=== PATIENT | male | born 1960 | race Caucasian/White ===

== ENCOUNTER 2016-12-17 12:00 | Inpatient (IN) | payer OTHER ==
[~2016-12-17] VITALS: Ht 189.2 cm; Wt 86.0 kg
--- NOTE | 2017-01-17 23:33 | CONS ---
DATE OF ADMISSION: 01/18/2017 DATE OF CONSULTATION: 01/18/2017 NEUROSURGICAL CONSULTATION HISTORY OF PRESENT ILLNESS: The patient was originally seen in the office for evaluation of neck pain, shoulder pain, arm pain, numbness in his left fourth and fifth digits and sometimes a gait instability. 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 Conservative management was offered to the patient in the form of epidural injections, physical therapy and pain management. Unfortunately, the patient's condition did not improve. The condition started getting worse. The patient wanted something more definitive to be done. The only option left is for surgical intervention. This was discussed with the patient in detail and the patient has agreed to undergo surgical intervention. PAST MEDICAL HISTORY: Per chart. PAST SURGICAL HISTORY: Per chart. SOCIAL HISTORY: Per chart. ALLERGIES: PER CHART. MEDICATION: Medications taken at home: Per chart. FAMILY HISTORY: None pertinent. REVIEW OF SYSTEMS: Additional 10-point review of systems conducted. Pertinent positives as in HPI. PHYSICAL EXAMINATION: GENERAL APPEARANCE: Awake, alert and oriented, follows commands. HEENT: Unremarkable. No cyanosis. Mouth: No lesions. NECK: Supple. LUNGS: Pulmonary: No dyspnea, no tachypnea. HEART: Cardiovascular: No JVD, no pedal edema. ABDOMEN: Soft, nontender. NEUROLOGIC: GCS 15. Cranial nerves 2-12 intact. Upper extremity examination: The patient has 4/5 strength in the left shoulder, left biceps, left triceps, left wrist extensors, flexors, intrinsic, extrinsic, hand muscles. He has diminished sensation to the left fourth and fifth digit. Right side is unremarkable. Lower extremity examination: He is able to move both sides equal at the hips, knees, and ankles. LABORATORY: MRI of the cervical spine dated 08/25/2016 shows C4- C5 subluxation with instability. IMPRESSION: C4-C5 instability. RECOMMENDATIONS: Recommendation is for patient to undergo surgical intervention in the form of anterior cervical decompression, cervical 4, cervical 5, partial vertebrectomy with discectomy with fusion and plating. The procedure was described to the patient in great detail, complications of the surgery were discussed in detail. The patient has agreed and wants to proceed, will be admitted to the hospital thereafter for further care and management. Dictated By: Waldo Cook MD /[email or web address]/hannah /Document#: [id number]
[2017-01-18] VITALS (25 sets, daily range): BP systolic 117–146; BP diastolic 67–92; PULSE 56–78; RESP 14–19; Ht 189.2 cm; Wt 86.0 kg
[2017-01-18] MEDS ORDERED: FURO40TA4 PO (08:37)
[2017-01-18] MEDS ORDERED: SPIR50TA PO (08:38)
[2017-01-18] MEDS ORDERED: HYDROCODONE/APAP (10/325) TAB PO PRN (09:00)
[2017-01-18] MEDS ORDERED: GELATIN SIZE 100 SPONGE ONE (09:25)
[2017-01-18] MEDS ORDERED: THROMBIN 5000 UNIT VIAL ONE (09:26)
[2017-01-18] MEDS ORDERED: LIDOCAINE 2%/EPI 30 ML INJ ONE (09:31)
--- NOTE | 2017-01-18 09:31 | HPN ---
Date/Time of Note Date/Time of Note DATE: 01/18/17 TIME: 09:31 Interval H&P Admission Note Pt. seen H&P reviewed: No system changes JOHN SALGUERO PA-C Jan 18, 2017 09:31
[2017-01-18 09:39] LABS: BASOPHIL # 0.1 10^3/ul (0.0-0.1); BASOPHILS % 0.8 % (0.0-2.0); EOSINOPHILS # 0.2 10^3/ul (0.0-0.5); EOSINOPHILS % 1.6 % (0.0-7.0); HEMATOCRIT 45.4 % (42.0-52.0); HEMOGLOBIN 15.4 g/dl (14.0-18.0); LYMPHOCYTES # 3.2 10^3/ul (0.8-2.9); LYMPHOCYTES % 23.5 % (15.0-51.0); MEAN CORPUSCULAR HEMOGLOBIN 30.8 pg (29.0-33.0); MEAN CORPUSCULAR HGB CONC 33.9 g/dl (32.0-37.0); MEAN CORPUSCULAR VOLUME 90.8 fl (82.0-101.0); MEAN PLATELET VOLUME 11.3 fl (7.4-10.4); MONOCYTE # 1.4 10^3/ul (0.3-0.9); MONOCYTES % 10.6 % (0.0-11.0); NEUTROPHILS % 63.1 % (39.0-77.0); PLATELET COUNT 211 10^3/UL (140-415); RED CELL DISTRIBUTION WIDTH 14.8 % (11.5-14.5)
[2017-01-18] MEDS ORDERED: FENTAnyl 50 MCG/ML VIAL ONE (09:42)
[2017-01-18 09:48] LABS: HOLD TRANSMISSIONS 1
[2017-01-18 09:50] LABS: WHITE BLOOD COUNT 13.4 10^3/ul (4.8-10.8)
[2017-01-18 09:56] LABS: ADD UMIC YES; UR ASCORBIC ACID NEGATIVE (NEGATIVE); UR BILIRUBIN (Dip) NEGATIVE (NEGATIVE); UR BLOOD (Dip) NEGATIVE (NEGATIVE); UR CLARITY CLEAR (CLEAR); UR COLOR YELLOW (YELLOW); UR GLUCOSE (Dip) NEGATIVE (NEGATIVE); UR KETONES (Dip) NEGATIVE (NEGATIVE); UR LEUKOCYTE ESTERASE (Dip) 1+ Leu/ul (NEGATIVE); UR NITRITE (Dip) NEGATIVE (NEGATIVE); UR RBC 1 /HPF (0-5); UR TOTAL PROTEIN (Dip) NEGATIVE (NEGATIVE); UR UROBILINOGEN (Dip) NEGATIVE (NEGATIVE)
[2017-01-18] MEDS ORDERED: MIDAZOLAM 1 MG/ML 2 ML INJ ONE (09:56)
[2017-01-18 09:58] LABS: INR 0.94; PROTIME 12.6 Sec (12.2-14.2)
[2017-01-18 09:59] LABS: PARTIAL THROMBOPLASTIN TIME 29.6 Sec (25.0-35.0)
[2017-01-18] MEDS ORDERED: niCARdipine 50 MG in SOD CHLORIDE 0.9% 480 ML IV PRN (10:00)
[2017-01-18 10:05] LABS: ALBUMIN 4.3 g/dl (3.3-4.9); ALBUMIN/GLOBULIN RATIO 1.38; BILIRUBIN,INDIRECT 0.4 mg/dl (0-1.1); BILIRUBIN,TOTAL 0.4 mg/dl (0.2-1.3); TOTAL PROTEIN 7.4 g/dl (6.1-8.1)
[2017-01-18] MEDS ORDERED: HEPARIN 1000 UNITS/NS (A-LINE) 0 ML ONE (10:06)
[2017-01-18 10:07] LABS: CALCIUM 9.8 mg/dl (8.4-10.2); CREATININE 0.82 mg/dl (0.61-1.24); POTASSIUM 3.6 mmol/L (3.5-5.1)
[2017-01-18] MEDS ORDERED: LABETALOL HCL 20MG INJ ONE (10:15)
[2017-01-18] MEDS ORDERED: PROPOFOL 40 ML ONE (10:32)
[2017-01-18] MEDS ORDERED: SUCCINYLCHOLINE CHLORIDE 100 MG/5 ML SYG IV ONE (10:32)
[2017-01-18] MEDS ORDERED: hydrALAzine 20 MG INJ ONE (10:32)
[2017-01-18] MEDS ORDERED: ROCURONIUM 50 MG INJ ONE (10:32)
[2017-01-18] MEDS ORDERED: CEFAZOLIN 1 GM INJ ONE (10:32)
[2017-01-18] MEDS ORDERED: LIDOCAINE 2% (SDV) 5 ML INJ ONE (10:32)
[2017-01-18] MEDS ORDERED: POLYMYXIN/BACITRACIN 1L IRRIG ONE (10:56)
[2017-01-18] MEDS ORDERED: SUGAMMADEX SODIUM 200 MG/2 ML VIAL IV ONE (11:22)
[2017-01-18] MEDS ORDERED: MEPERIDINE 25 MG INJ IV PRN (11:30)
[2017-01-18] MEDS ORDERED: HYDROmorphONE (0.2 MG/ML) 10ML SYG IV PRN ×2 (11:30)
[2017-01-18] MEDS ORDERED: DIPHENHYDRAMINE 50 MG INJ IV PRN (11:30)
[2017-01-18] MEDS ORDERED: ONDANSETRON 4 MG INJ IV PRN (11:30)
[2017-01-18] MEDS ORDERED: hydrALAzine 20 MG INJ IV PRN (11:30)
[2017-01-18] MEDS ORDERED: METOCLOPRAMIDE 10 MG INJ IV PRN (11:30)
[2017-01-18] MEDS ORDERED: LABETALOL HCL 20MG INJ IV PRN (11:30)
[2017-01-18] MEDS ORDERED: FENTAnyl 50 MCG/ML VIAL IV PRN ×2 (11:30)
--- NOTE | 2017-01-18 11:36 | OPR ---
Date/Time of Note Date/Time of Note DATE: 01/18/17 TIME: 11:32 Operative Report Free Text/Dictation c4-5 subluxation with instability Preoperative Diagnosis cervical 4 to cervical 5 subluxation with instability Postoperative Diagnosis same Operation Performed cervical 4 to cervical 5 partial vertebrectomy with diskectomy with interbody fusion and anterior plate Surgeon: JORDANA LEVIN MD Pharmacy Order Entry Technician: JOHN SALGUERO PA-C Anesthesia Type: general Anesthesiologist: SOLANGE KYLE Estimated Blood Loss: 10 - 50 ml's Transfusion Required: no Specimens c4-5 disk Complications: no Pt Condition Post Procedure: stable Operative\Procedure Findings c4-5 subluxation with instability JORDANA LEVIN MD Jan 18, 2017 11:36
[2017-01-18] MEDS: HYDROmorphONE (0.2 MG/ML) 10ML SYG IV PRN ×2 (11:54→12:14)
[2017-01-18] MEDS: DEXTROSE 5%-LR 1,000 ML IV SCH ×2 (12:43→21:22)
[2017-01-18] MEDS: DEXAMETHASONE 4 MG/ML 1 ML INJ IV SCH ×3 (13:25→23:11)
[2017-01-18] MEDS: CEFAZOLIN 1 GM/50 ML (PMX) 50 ML IVPB SCH ×2 (13:25→21:22)
--- NOTE | 2017-01-18 15:39 | RADRPT ---
PROCEDURE: Intraoperative imaging of the cervical spine with fluoroscopy. CLINICAL INDICATION: Neck pain. Intraoperative. TECHNIQUE: 5 images of the cervical spine were obtained in the operating room with an image intens ifier. No radiologist was in attendance. Fluoroscopy time is 10.0 seconds. COMPARISON: No prior study is available for comparison. FINDINGS: Surgical instruments are noted overlying the cervical spine. Images demonstrate anterior fusion wit h plate and screws at C4-5. Intervertebral disc spacer is present at C4-5. The endotracheal tube is in satisfactory position. IMPRESSION: 1. Intraoperative imaging of the cervical spine. RPTAT: QQ .Eb Rey MD, Date Time Electronically viewed and signed by .Eb Rey MD, on 01/18/2017 15:38 .R/
[2017-01-18] MEDS: morphine 2 MG INJ IV PRN (16:46)
[2017-01-18] MEDS: ONDANSETRON 4 MG INJ IV PRN (16:46)
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
[2017-01-19] VITALS (20 sets, daily range): BP systolic 97–149; BP diastolic 56–93; PULSE 54–72; RESP 12–22
[2017-01-19] MEDS: morphine 2 MG INJ IV PRN ×3 (00:52→19:52)
[2017-01-19] MEDS: ONDANSETRON 4 MG INJ IV PRN ×3 (00:57→20:01)
[2017-01-19] MEDS: DEXAMETHASONE 4 MG/ML 1 ML INJ IV SCH ×2 (05:28→12:37)
[2017-01-19] MEDS: CEFAZOLIN 1 GM/50 ML (PMX) 50 ML IVPB SCH ×2 (05:28→14:19)
[2017-01-19 05:43] LABS: BASOPHILS % 0.1 % (0.0-2.0); HEMATOCRIT 44.9 % (42.0-52.0); LYMPHOCYTES % 8.2 % (15.0-51.0); MEAN CORPUSCULAR HEMOGLOBIN 30.4 pg (29.0-33.0); MEAN CORPUSCULAR HGB CONC 33.4 g/dl (32.0-37.0); MEAN CORPUSCULAR VOLUME 90.9 fl (82.0-101.0); MEAN PLATELET VOLUME 11.5 fl (7.4-10.4); MONOCYTE # 0.8 10^3/ul (0.3-0.9); MONOCYTES % 6.2 % (0.0-11.0); NEUTROPHILS % 84.9 % (39.0-77.0); PLATELET COUNT 194 10^3/UL (140-415); RED BLOOD COUNT 4.94 10^6/ul (4.70-6.10); RED CELL DISTRIBUTION WIDTH 14.7 % (11.5-14.5); WHITE BLOOD COUNT 12.3 10^3/ul (4.8-10.8)
[2017-01-19 05:56] LABS: CALCIUM 9.3 mg/dl (8.4-10.2); CREATININE 0.71 mg/dl (0.61-1.24); POTASSIUM 4.1 mmol/L (3.5-5.1)
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
[2017-01-19] MEDS: DEXTROSE 5%-LR 1,000 ML IV SCH ×2 (11:40→14:17)
--- NOTE | 2017-01-19 13:48 | RADRPT ---
PROCEDURE: MRI cervical spine without contrast CLINICAL INDICATION: Status post cervical decompression, C4-5 subluxation surgery TECHNIQUE: Multiplanar MRI of the cervical spine without contrast was performed on a 3.0 T scanner including the following sequences: T1-weighted, T2-weighted, STIR, GRE. COMPARISON: Fluoroscopic study 01/18/2017 FINDINGS: There are postoperative changes with susceptibility artifacts associated with anterior cervical disc ectomy fusion hardware at C4-5, along with postoperative upper prevertebral / retropharyngeal edema. There is grade 1 anterolisthesis at C4-5. Visualized vertebral bodies are maintained in height an d visualized marrow signal intensity appears unremarkable. Anterior osteophytes are seen at C5-6 th ere is mild - moderate disc space narrowing at C5-6, and C6-7. The cervical cord is within normal li mits for signal intensity and caliber at all levels. The craniocervical junction is unremarkable. C2-3: There is a mild posterior disc osteophyte on the left. There is no central canal stenosis. Th ere are uncovertebral osteophytes and facet arthropathy on the left with moderate to severe left for aminal narrowing. C3-4: There is a minimal to mild broad posterior disc osteophyte without central canal stenosis. Th ere are uncovertebral osteophytes and facet arthropathy with mild - moderate foraminal narrowing. C4-5: Postoperative changes are present as described above. There is no central canal stenosis. The re are uncovertebral osteophytes and facet arthropathy with moderate - severe right, mild - moderate left foraminal narrowing. C5-6: There is a broad posterior disk/osteophyte with mild central canal stenosis. There are uncove rtebral osteophytes and facet arthropathy with moderate to severe left foraminal narrowing. C6-7: There is a broad posterior disk/osteophyte with mild central canal stenosis. There are uncove rtebral osteophytes and facet arthropathy with mild - moderate right, severe left foraminal narrowin g. C7-T1: No disc bulge or herniation is identified. There is no central canal stenosis. There is face t arthropathy with mild bilateral foraminal narrowing. IMPRESSION: 1. Postoperative changes, status post anterior cervical discectomy - fusion at C4-5 with grade 1 an terolisthesis at this level. 2. Cervical spondylosis/degenerative enthesopathy. 3. Mild central canal stenosis at C5-6 and C6-7. 4. Multilevel foraminal narrowing detailed above. RPTAT: VV .Edwin Duke MD, Date Time Electronically viewed and signed by .Edwin Duke MD, on 01/19/2017 13:47 .O/
--- NOTE | 2017-01-19 15:17 | CONS ---
Date/Time of Note Date/Time of Note DATE: 01/19/17 TIME: 15:15 Assessment/Plan Assessment/Plan Additional Assessment/Plan seen/examined sp c4-5 partial vertebrectomy with fusion moves all/sensation intact mri looks good pt may leave unit pt/ot Consultation Date/Type/Reason Admit Date/Time Jan 18, 2017 at 07:44 Initial Consult Date Exam/Review of Systems Vital Signs Vitals Vital Signs Date Time Temp Pulse Resp B/P Pulse Ox O2 Delivery O2 Flow Rate FiO2 01/19/17 15:00 57 22 132/89 96 Room Air 01/19/17 12:00 98.0 01/18/17 12:13 2.0 Intake and Output 01/18/17 01/18/17 01/19/17 15:00 23:00 07:00 Intake Total 1500 ml 750 ml 650 ml Output Total 290 ml 820 ml 665 ml Balance 1210 ml -70 ml -15 ml Results Result Diagram: 01/19/17 0442 01/19/17 0442 Results 24 hrs Laboratory Tests Test 01/19/17 04:42 White Blood Count 12.3 H Red Blood Count 4.94 Hemoglobin 15.0 Hematocrit 44.9 Mean Corpuscular Volume 90.9 Mean Corpuscular Hemoglobin 30.4 Mean Corpuscular Hemoglobin Concent 33.4 Red Cell Distribution Width 14.7 H Platelet Count 194 Mean Platelet Volume 11.5 H Neutrophils % 84.9 H Lymphocytes % 8.2 L Monocytes % 6.2 Eosinophils % 0.0 Basophils % 0.1 Nucleated Red Blood Cells % 0.0 Neutrophils # (Manual) 10.4 H Lymphocytes # 1.0 Monocytes # 0.8 Eosinophils # 0.0 Basophils # 0.0 Nucleated Red Blood Cells # 0.0 Sodium Level 139 Potassium Level 4.1 Chloride Level 106 Carbon Dioxide Level 26 Anion Gap 11 Blood Urea Nitrogen 11 Creatinine 0.71 Glucose Level 135 # Calcium Level 9.3 Medications Medications Current Medications Dextrose/Lactated Ringer's (D5-Lr) 1,000 ml @ 75 mls/hr [id number] IV Last administered on 01/19/17 14:17; Admin Dose 75 MLS/HR; Start 01/18/17 at 09:00 Morphine Sulfate (morphine) 2 mg Q4H PRN IV severe pain Last administered on 10:23; Admin Dose 2 MG; Start 01/18/17 at 09:00 Ondansetron HCl (Zofran Inj) 4 mg Q6H PRN IV NAUSEA AND/OR VOMITING Last administered on 01/19/17t 10:25; Admin Dose 4 MG; Start 01/18/17 at 09:00 Acetaminophen/ Hydrocodone Bitart 1 tab 1 tab Q6H PRN PO mild to mod pain; Start 01/18/17 at 09:00 Nicardipine HCl/ Sodium Chloride (Cardene Iv/NS) 500 ml @ 50 mls/hr TITRATE PRN IV sbp<160; Start 01/18/17 at 10:00 JOHN SALGUERO PA-C Jan 19, 2017 15:17
[2017-01-20 00:05] VITALS: BP 119/71; RESP 19
[2017-01-20 07:33] LABS: BASOPHIL # 0.1 10^3/ul (0.0-0.1); BASOPHILS % 0.4 % (0.0-2.0); EOSINOPHILS % 0.1 % (0.0-7.0); HEMATOCRIT 43.5 % (42.0-52.0); HEMOGLOBIN 14.4 g/dl (14.0-18.0); LYMPHOCYTES # 3.2 10^3/ul (0.8-2.9); LYMPHOCYTES % 22.4 % (15.0-51.0); MEAN CORPUSCULAR HEMOGLOBIN 30.6 pg (29.0-33.0); MEAN CORPUSCULAR HGB CONC 33.1 g/dl (32.0-37.0); MEAN CORPUSCULAR VOLUME 92.4 fl (82.0-101.0); MEAN PLATELET VOLUME 11.2 fl (7.4-10.4); MONOCYTE # 1.4 10^3/ul (0.3-0.9); MONOCYTES % 9.8 % (0.0-11.0); NEUTROPHILS % 66.9 % (39.0-77.0); PLATELET COUNT 175 10^3/UL (140-415); RED BLOOD COUNT 4.71 10^6/ul (4.70-6.10); RED CELL DISTRIBUTION WIDTH 15.1 % (11.5-14.5); WHITE BLOOD COUNT 14.1 10^3/ul (4.8-10.8)
[2017-01-20 07:58] LABS: CALCIUM 9.4 mg/dl (8.4-10.2); CREATININE 0.75 mg/dl (0.61-1.24); POTASSIUM 4.3 mmol/L (3.5-5.1)
[2017-01-20 08:20] VITALS: BP 118/66; RESP 16
--- NOTE | 2017-01-20 11:04 | CONS ---
Date/Time of Note Date/Time of Note DATE: 01/20/17 TIME: 11:02 Assessment/Plan Assessment/Plan Additional Assessment/Plan seen/examined awake/alert/follows/moves all/sensation intact sp anterior cervical decompression with fusion pt doing well may go home today fu 1 week. Consultation Date/Type/Reason Admit Date/Time Jan 18, 2017 at 07:44 Exam/Review of Systems Vital Signs Vitals Vital Signs Date Time Temp Pulse Resp B/P Pulse Ox O2 Delivery O2 Flow Rate FiO2 01/20/17 08:20 98.2 52 16 118/66 94 01/19/17 17:52 Room Air 01/18/17 12:13 2.0 Intake and Output 01/19/17 01/19/17 01/20/17 15:00 23:00 07:00 Intake Total 1460 ml 240 ml 750 ml Output Total 350 ml 900 ml Balance 1110 ml 240 ml -150 ml Results Result Diagram: 01/20/17 0700 01/20/17 0721 Results 24 hrs Laboratory Tests Test 01/20/17 07:00 01/20/17 07:21 White Blood Count 14.1 H Red Blood Count 4.71 Hemoglobin 14.4 Hematocrit 43.5 Mean Corpuscular Volume 92.4 Mean Corpuscular Hemoglobin 30.6 Mean Corpuscular Hemoglobin Concent 33.1 Red Cell Distribution Width 15.1 H Platelet Count 175 Mean Platelet Volume 11.2 H Neutrophils % 66.9 Lymphocytes % 22.4 Monocytes % 9.8 Eosinophils % 0.1 Basophils % 0.4 Nucleated Red Blood Cells % 0.0 Neutrophils # (Manual) 9.4 H Lymphocytes # 3.2 H Monocytes # 1.4 H Eosinophils # 0.0 Basophils # 0.1 Nucleated Red Blood Cells # 0.0 Sodium Level 139 Potassium Level 4.3 Chloride Level 107 Carbon Dioxide Level 29 Anion Gap 7 L Blood Urea Nitrogen 14 Creatinine 0.75 Glucose Level 95 # Calcium Level 9.4 Medications Medications Current Medications Morphine Sulfate (morphine) 2 mg Q4H PRN IV severe pain Last administered on 19:52; Admin Dose 2 MG; Start 01/18/17 at 09:00 Ondansetron HCl (Zofran Inj) 4 mg Q6H PRN IV NAUSEA AND/OR VOMITING Last administered on 01/19/17 20:01; Admin Dose 4 MG; Start 01/18/17 at 09:00 Acetaminophen/ Hydrocodone Bitart ([place] ()) 1 tab Q6H PRN PO mild to mod pain; Start 01/18/17 at 09:00 JOHN SALGUERO PA-C Jan 20, 2017 11:04
[2017-01-20 13:48] VITALS: BP 122/80; RESP 16
[2017-01-20] MEDS ORDERED: DOCU-144 PO (14:43)
[2017-01-20] MEDS ORDERED: FAMO-96 PO (14:43)
[2017-01-20] MEDS ORDERED: Hydrocodone/Apap (10/325) PO (14:43)
--- NOTE | 2017-01-26 09:08 | OPR ---
DATE OF OPERATION: 01/18/2017 PREOPERATIVE DIAGNOSIS: 1. C4-C5 cervical disruption with cervical stenosis. 2. Cervical myelopathy, radiculopathy with quadriplegia. POSTOPERATIVE DIAGNOSIS: 1. C4-C5 cervical disruption with cervical stenosis. 2. Cervical myelopathy, radiculopathy with quadriplegia. OPERATION PERFORMED: 1. C4 partial vertebrectomy, anterior (CPT 07114). 2. C5 partial vertebrectomy, anterior (CPT 10789). 3. C4-C5 arthrodesis (CPT 43713). 4. C4-C5 anterior cervical instrumentation (CPT 90145). 5. C4-C5 placement of allograft and MPF bone for fusion of the cervical spine with preparation of allograft with demineralized bone matrix, DBX (CPT 84978). SURGEON: Waldo Cook MD SPINNER FIXER: Jeyson Downs PA-C. COMPLICATIONS: None. ANESTHESIA: General endotracheal. ESTIMATED BLOOD LOSS: Less than 200 mL. COUNTS: Instrument and sponge counts correct. SPECIMENS: Fragments of the disk was sent to pathology. INDICATIONS FOR THE OPERATION: Patient is well known to me. He has C4-C5 unstable cervical spine with anterior subluxation of C4 over C5 with severe neural foraminal and lateral listhesis with central canal stenosis with disc rupture; will with cervical discectomy, cervical partial vertebrectomy C4-C5 with fusion and instrumentation. . Risks and benefits of operations including anesthesia, infection, bleeding, permanent neurological injury and were explained. Patient agreed to proceed with the operation outpatient and signed the consent. OPERATIVE PROCEDURE: The patient was placed in supine position. General endotracheal anesthesia was obtained. The neck was semi extended. A shoulder roll was placed under the shoulder. I was standing on the left side. Midline incision was made in the left anterior neck, was carried past the platysma, subplatysma, to the anterior cervical fascia. C4-C5 interspace was marked with a needle and fluoroscopy confirmed our position. Partial vertebrectomy of the inferior 3 mm of C4 and superior 3 mm of C5 was done all the way to the posterior longitudinal ligament which was opened with a curette and the posterior longitudinal was removed with a Kerrison punch number 3 with neural foraminotomies on both sides of the midline. There was subluxation of C4-C5 but by distraction of C4 over C5, the subluxation was completely resolved. At this time, I placed a 10 mm advanced ACF bone that was packed with 0.5 mL of demineralized bone matrix at the level of the C4- C5 tapped it in place, achieving arthrodesis at the level of the C4-C5. Following that a Vectra T plate that was 14 mm long was affixed to the cervical spine utilizing 4.5 x 14 mm screws, a total 4 screws were utilized. Everything was done under fluoroscopy. Spinal monitoring showed improvement of signal. Closure of wound was done after irrigation of wound with bacitracin saline solution and closure with 2-0 Vicryl for the platysma, 4-0 nylon in subcuticular fashion for the skin. Patient tolerated the procedure well, was taken to post- anesthesia recovery, extubated, stable, following commands and spinal monitoring showed improvement of signal. Dictated By: Waldo Cook MD /darshan/alonzo /Document#: [id number]
== END 2017-01-20 17:15 | disposition home or self-care (01) | DRG 472 ==
LOC: REC 01-18 07:44 → ICU 01-18 12:20 → MS1 01-19 17:42
PROVIDERS: ADMIT Neurological Surgery; ATTEND Neurological Surgery
PROC: 0RT30ZZ Resection of Cervical Vertebral Disc, Open Approach (ICD-10-PCS; 2017-01-18)
PROC: 0RG10K0 Fusion of Cervical Vertebral Joint with Nonautologous Tissue Substitute, Anterior Approach, Anterior Column, Open Approach (ICD-10-PCS; principal; 2017-01-18 09:30)
DX: M50.121 Cervical disc disorder at C4-C5 level with radiculopathy (principal); M50.021 Cervical disc disorder at C4-C5 level with myelopathy; K72.90 Hepatic failure, unspecified without coma; M48.02 Spinal stenosis, cervical region; I10 Essential (primary) hypertension; M53.2X2 Spinal instabilities, cervical region; F12.10 Cannabis abuse, uncomplicated; F17.200 Nicotine dependence, unspecified, uncomplicated
CPT/HCPCS: 72050; 72141; 80048; 80053; 81001; 85025; 85610; 85730; 86850; 86900; 86901; 87081; 87086; 88304; 97116; 97162; 97530; C1713; J0360; J0690; J1100; J1170; J1644; J2250; J2270; J2405; J2765; J3010; J7121; J7999